=== PATIENT | female | born 1990 | race Caucasian/White ===

== ENCOUNTER 2019-05-28 15:48 | Emergency (ER) | payer BC ==
[2019-05-28 16:10] VITALS: BP 121/79
--- NOTE | 2019-05-28 17:00 | UC ---
Lower Extremity/Ankle HPI - HPI Summary HPI Summary: 29-year-old female who stubbed her right great toe couple of days ago which loosened the nail. Today she states a first grade student accidentally ran into her toe which lifted the nail almost completely and broke it. - History of Current Complaint Chief Complaint: UCLowerExtremity Stated Complaint: TOE INJURY Time Seen by Provider: 05/28/19 15:57 Hx Obtained From: Patient Hx Last Menstrual Period: December 2016 ?: Yes - 17 weeks gestation Onset/Duration: Sudden Onset Severity Initially: Moderate Severity Currently: Moderate Pain Intensity: 6 Aggravating Factor(s): Nothing Alleviating Factor(s): Rest Able to Bear Weight: Yes - Allergies/Home Medications Allergies/Adverse Reactions: Allergies Allergy/AdvReac Type Severity Reaction Status Date / Time No Known Allergies Allergy Verified 12/25/18 13:55 Home Medications: Home Medications Acetaminophen [Acetaminophen Extra Strength] 500 mg PO ONCE PRN 05/28/19 [ History Confirmed 05/28/19] Pnv No.103/Folic/Om3s/Fish Oil [ Gummies] 2 each PO QPM 05/28/19 [ History Confirmed 05/28/19] PMH/Surg Hx/FS Hx/Imm Hx Previously Healthy: Yes - Surgical History Surgical History: Yes - Family History Known Family History: Negative: Hypertension - Social History Occupation: Employed Full-time Lives: With Family Alcohol Use: None Substance Use Type: None Smoking Status (MU): Never Smoked Tobacco Have You Smoked in the Last Year: No - Immunization History Most Recent Influenza Vaccination: May 2017 Most Recent Tetanus Shot: UTD Review of Systems All Other Systems Reviewed And Are Negative: Yes Skin: Positive: Other - Right great toenail is avulsed. Is Patient Immunocompromised?: No Physical Exam Triage Information Reviewed: Yes Appearance: Well-Appearing, No Pain Distress, Well-Nourished Vital Signs: Initial Vital Signs Temp 99.8 F 05/28/19 16:05 Pulse 97 05/28/19 16:05 Resp 20 05/28/19 16:05 BP 121/79 05/28/19 16:05 Pulse Ox 100 05/28/19 16:05 Musculoskeletal Exam: Normal Neurological Exam: Normal Psychological Exam: Normal Skin: Positive: Other - The right great toenail is two thirds avulsed out of the eponychiom. Good peripheral pulses neuro sensation capillary refill. Lower Extremity Course/Dx - Course Course Of Treatment: Patient is comfortable here. Her tetanus immunization is up-to-date. She is 17 weeks gestation. We soaked the toe in Hibiclens soak which loosen the bandages. The two thirds of the nail that is avulsed is only hanging by a thread which was cut without difficulty. The patient tolerated procedure well. She is to do warm water soaks 4-6 times a day 20 minutes each time over the weekend and a nonstick or Vaseline dressing or bacitracin dressing to change daily and to follow-up with her primary care provider if any concerns for infection which were reviewed with the patient. - Differential Dx/Diagnosis Provider Diagnosis: Avulsion of toenail of right foot Discharge ED - Sign-Out/Discharge Documenting (check all that apply): Patient Departure All imaging exams completed and their final reports reviewed: No Studies - Discharge Plan Condition: Good Disposition: HOME Patient Education Materials: Nail Avulsion (ED) Referrals: Brayan Echols MD [Primary Care Provider] - Additional Instructions: Warm water soaks 4-6 times a day over the weekend for 20 minutes each time. Change the dressing daily and apply triple antibiotic or bacitracin ointment to the area. Follow-up with your primary care provider if you develop any signs of infection such as hot, red, tender, pus drainage or red streaks up your foot. - Billing Disposition and Condition Condition: GOOD Disposition: Home
== END 2019-05-28 17:06 | disposition home or self-care (01) ==
LOC: UCCORT 15:48
DX: O9A.212 Injury, poisoning and certain other consequences of external causes complicating pregnancy, second trimester (principal); S91.201A Unspecified open wound of right great toe with damage to nail, initial encounter; Z3A.17 17 weeks gestation of pregnancy; W22.8XXA Striking against or struck by other objects, initial encounter; Y92.9 Unspecified place or not applicable
CPT/HCPCS: 99212; G0463

== ENCOUNTER 2019-09-23 07:14 | Emergency (ER) | payer BC ==
[2019-09-23 07:27] VITALS: BP 113/69
[2019-09-23 07:47] LABS: Influenza B Molecular POSITIVE (Negative)
--- NOTE | 2019-09-23 07:53 | UC ---
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 + influenza contact medications as entered in EMR by oncology coordinator reviewed this visit - History of Current Complaint Chief Complaint: UCRespiratory Stated Complaint: COUGH,FEVER 34 WKS Time Seen by Provider: 09/23/19 07:47 Hx Obtained From: Patient Hx Last Menstrual Period: December 2016 Onset/Duration: Gradual Onset Pain Intensity: 0 - Allergy/Home Medications Allergies/Adverse Reactions: Allergies Allergy/AdvReac Type Severity Reaction Status Date / Time No Known Allergies Allergy Verified 09/23/19 07:24 Home Medications: Home Medications Pseudoephedrine TAB* [Sudafed TAB*] 1 dose PO ONCE 09/23/19 [History Confirmed 09/23/19] PMH/Surg Hx/FS Hx/Imm Hx Previously Healthy: Yes - Surgical History Surgical History: Yes - Family History Known Family History: Positive: Non-Contributory Negative: Hypertension - Social History Occupation: Employed Full-time Lives: With Family Alcohol Use: None Substance Use Type: None Smoking Status (MU): Never Smoked Tobacco Have You Smoked in the Last Year: No - Immunization History Most Recent Influenza Vaccination: May 2017 Most Recent Tetanus Shot: UTD Review of Systems All Other Systems Reviewed And Are Negative: Yes Constitutional: Positive: Fever ENT: Positive: Sore Throat, Nasal Discharge, Sinus Congestion Respiratory: Positive: Cough Physical Exam - Summary Physical Exam Summary: Vital Signs Reviewed: Yes A+Ox3, congested Eyes: Conjunctiva Clear, LILY. EOM intact and full ENT: Hearing grossly normal TM x 2 clear, turbiantes inflammed and boggy, + PND , mmoist, uvula midline, no exudate, no erythema Neck: Positive: Supple Respiratory: Positive: No respiratory distress, No accessory muscle use + CTA throughout no w/r Cardiovascular: RRR nl s1, s2 no m/r CBT <2 sec abd soft + BS nt/nd no guarding, gravid Musculoskeletal Exam: REYES x 4 without difficulty Strength Intact, ROM Intact Neurological: Positive: Alert, + sensation throughout Psychological: Positive: Normal Response To clerk carrier Skin: Positive: no rash, no ecchymosis Triage Information Reviewed: Yes Vital Signs: Initial Vital Signs Temp 98.5 F 09/23/19 07:23 Pulse 134 09/23/19 07:23 Resp 18 09/23/19 07:23 BP 113/69 09/23/19 07:23 Pulse Ox 99 09/23/19 07:23 Flu Course/Dx - Course Course Of Treatment: Pt iwth 34 weeks , congestion, cough, fever pt with food baby movement, APAP for fever On exam, congested, +PND ntermittent cough pt with + influenza d/w pt and Tamiflu -will d/w OB hydrate humidified air APAP secretions precautions return precautions work note - Differential Dx/Diagnosis Provider Diagnosis: Influenza Discharge ED - Sign-Out/Discharge Documenting (check all that apply): Patient Departure All imaging exams completed and their final reports reviewed: No Studies - Discharge Plan Condition: Stable Disposition: HOME Prescriptions: Oseltamivir Phosphate [Tamiflu] 75 mg PO BID #10 capsule Patient Education Materials: Influenza (ED) Forms: *Work Release Referrals: Brayan Echols MD [Primary Care Provider] - Additional Instructions: - Stay well hydrated. Drink plenty of non-alcoholic, non-caffinated beverages. - Okay to take Tylenol every 6 hours for pain or fever. Take with food. Do NOT take for more than 4-5 days. - These infections are spread by secretions - do NOT share eating or drinking utensils - clean items you share with other people such as cell phones, computer mouse, TV remote, computer tablets,etc. Once you start to feel better, change your toothbrush and your pillowcase. - get plenty of restful sleep - humidify the air in the room where you sleep - boil water, run a hot steam shower, vaporizer, cups of water by heat register - okay to take over the counter decongestant and cough medication - You have been prescribed Tamiflu - it is recommended you contact your OB doctor to discuss the use of this medication - contact your doctor or go to the emergency department for uncontrolled fever, vomiting, rash, shortness of breath, changes in baby movement or any other questions or concerns. - Billing Disposition and Condition Condition: STABLE Disposition: Home
== END 2019-09-23 08:27 | disposition home or self-care (01) ==
LOC: UCCORT 07:14
DX: O99.513 Diseases of the respiratory system complicating pregnancy, third trimester (principal); J11.1 Influenza due to unidentified influenza virus with other respiratory manifestations; Z3A.34 34 weeks gestation of pregnancy
CPT/HCPCS: 99212; G0463